=== PATIENT | male | born 1990 | race Two or more races ===

== ENCOUNTER 2019-03-15 16:49 | Emergency (ER) | payer OTHER ==
[~2019-03-15] VITALS: Ht 170.2 cm; Wt 104.3 kg
[2019-03-15] MEDS ORDERED: HUMALOG MI100 UNIT/1 (17:33)
== END 2019-03-15 20:33 | disposition home or self-care (01) ==
LOC: ER 16:49
DX: J06.9 Acute upper respiratory infection, unspecified (principal)